=== PATIENT | female | born 1970 | race Caucasian/White ===

== ENCOUNTER 2024-12-31 16:10 | Emergency (ER) | payer OTHER ==
[2024-12-31 17:30] LABS: Absolute Lymphocytes (CBC) 1.5 K/uL (0.7-4.9); Hematocrit 44.1 % (36.0-45.0); Hemoglobin 14.9 g/dL (12.0-15.0); MCH 29.6 pg (27.0-35.0); MCHC 33.9 g/dL (32.0-36.0); MCV 87.5 fL (80-100); MPV 7.3 fL (7.6-11.3); Nucleated RBC Absolute Count 0.0 (0-0); Nucleated Red Blood Cells % 0.2 % (0-0); RBC Red Blood Cell Count 5.04 M/uL (3.86-4.86); White Blood Count 7.00 thou/uL (4.3-10.9)
[2024-12-31] MEDS ORDERED: KETOROLAC 30 MG/ML INJ ONE (17:58)
[2024-12-31] MEDS ORDERED: NA CHLORIDE 0.9% 1,000 ML ONE (17:58)
[2024-12-31] MEDS ORDERED: ONDANSETRON 4 MG/2 ML VIAL ONE (17:58)
[2024-12-31 18:04] LABS: Anion Gap 7.8 mEq/L (5.0-15.0); BUN Blood Urea Nitrogen 8.0 mg/dL (7-18); Glucose Level 96.0 mg/dL (74-106); Troponin High Sensitivity 5.5 pg/mL (<58.9)
[2024-12-31 18:06] LABS: Potassium 3.8 mEq/L (3.5-5.1)
--- NOTE | 2024-12-31 18:06 | RAD REPORT ---
EXAM: Chest Single View HISTORY: 54 years Female CHEST PAIN COMPARISON: No prior exams FINDINGS: LUNGS/PLEURA: The lungs are clear. No pleural effusions or pneumothorax. No pulmonary edema. CARDIAC/MEDIASTINUM: The cardiac silhouette is within normal limits. UPPER ABDOMEN: No significant abnormality. BONES: No acute abnormality. LINES/TUBES/OTHER: N/A IMPRESSION: No evidence of acute cardiopulmonary disease.
--- NOTE | 2024-12-31 18:59 | EDPHYS ---
Physician Documentation [facility] Name: Krissy Singh Age: 54 yrs Sex: Female : 1970 Arrival Date: 12/31/2024 Time: 16:10 Bed 3 Private MD: ED Physician Eleanor Sosa HPI: 12/31 20:02 This 54 yrs old Female presents to ER via Ambulatory with complaints of Chest dr5 Pain, Epigastric Pain, Numbness Of Arm, Headache. 20:02 Onset: The symptoms/episode began/occurred 4 day(s) ago. Patient is a 54-year-old dr5 female with history of arthritis and hypothyroidism coming in with chest pain that lasted 20 minutes while vomiting this afternoon. Patient reports that she has been sick with upper respiratory infection for the past 4 days. Patient reports her also has same symptoms that resolved. Patient denies chest pain, shortness of breath, abdominal pain at my initial visit.. Historical: - Allergies: 16:29 No Known Allergies; dd2 - PMHx: 16:29 Hypothyroidism; Arthritis; dd2 - PSHx: 16:29 CARDIAC STENT; dd2 - Immunization history:: Adult Immunizations up to date. - Infectious Disease History:: Denies. - Social history:: Smoking status: Patient/guardian denies using tobacco, the patient reports quitting approximately 6 years ago. ROS: 20:02 Constitutional: as per hpi dr5 Exam: 20:02 Constitutional: This is a well developed, well nourished patient who is awake, alert, dr5 and in no acute distress. Head/Face: Normocephalic, atraumatic. Eyes: Pupils equal round and reactive to light, extra-ocular motions intact. Lids and lashes normal. Conjunctiva and sclera are non-icteric and not injected. Cornea within normal limits. Periorbital areas with no swelling, redness, or edema. Neck: Trachea midline, no thyromegaly or masses palpated, and no cervical lymphadenopathy. Supple, full range of motion without nuchal rigidity, or vertebral point tenderness. No Meningismus. Chest/axilla: Normal chest wall appearance and motion. Nontender with no deformity. No lesions are appreciated. Cardiovascular: Regular rate and rhythm with a normal S1 and S2. Normal PMI, no JVD. No pulse deficits. Respiratory: Lungs have equal breath sounds bilaterally, clear to auscultation. No rales, rhonchi or wheezes noted. No increased work of breathing, no retractions or nasal flaring. Back: No spinal tenderness. No costovertebral tenderness. Full range of motion. Skin: Warm, dry with normal turgor. Normal color with no rashes, no lesions, and no evidence of cellulitis. MS/ Extremity: Pulses equal, no cyanosis. Neurovascular intact. Full, normal range of motion. Neuro: Awake and alert, GCS 15, oriented to person, place, time, and situation. Cranial nerves II-XII grossly intact. Motor strength 5/5 in all extremities. Sensory grossly intact. Cerebellar exam normal. Normal gait. Vital Signs: 16:24 BP 175 / 105; Pulse 85; Resp 16; Temp 98.2; Pulse Ox 100% ; Weight 90.72 kg; Pain 1/10; dd2 17:28 BP 150 / 80; Pulse 84; Resp 18; Pulse Ox 98% on R/A; af3 18:11 BP 149 / 117; Pulse 77; Resp 18; Pulse Ox 98% on R/A; af3 18:26 BP 149 / 117; Pulse 85; Resp 18; Pulse Ox 100% on R/A; af3 16:24 Pain Scale: Adult dd2 MDM: 16:29 Medical Screening Exam initiated dr5 20:02 Differential diagnosis: viral Infection, bacterial infection, NSTEMI, PNA, GERD, dr5 anemia, STEMI. Data reviewed: vital signs, nurses notes. Consideration of Admission/Observation Escalation of care including admission/observation considered. Escalation considered patient found to have elevated troponin. I considered the following discharge prescriptions or medication management in the emergency department I discussed and recommended Over The Counter medications, Medications were administered in the Emergency Department. See MAR. Independent interpretation of the following test(s) in the Emergency Department X-Ray: My interpretation is Independent termination of x-ray does not reveal fracture or pneumonia.. Historians other than the Patient: Spouse/Significant Other: . Care significantly affected by the following chronic conditions: Hypothyroidism, arthritis. Care significantly affected by the following Social Determinants of Health: Poor access to healthcare and/or lack of insurance, Poor access to transportation, Problems related to employment. Counseling: I had a detailed discussion with the patient and/or guardian regarding the historical points, exam findings, and any diagnostic results supporting the discharge/admit diagnosis, the presence of at least one elevated blood pressure reading (>120/80) during this emergency department visit, lab results, radiology results, the need for outpatient follow up, for definitive care, a family practitioner, to return to the emergency department if symptoms worsen or persist or if there are any questions or concerns that arise at home. Medication response: Response to treatment: the patient's symptoms have resolved after treatment, the patient's condition has returned to base line, the patient is now symptom free. Special discussion: Based on the patient's history, exam, and Dx evaluation, there is no indication for emergent intervention or inpatient Tx. It is understood by the patient/guardian that if the Sx's persist or worsen they need to return immediately for re-evaluation. I discussed with the patient/guardian in detail that at this point there is no indication for admission to the hospital. It is understood, however, that if the symptoms persist or worsen the patient needs to return immediately for re-evaluation. Based on the history and exam findings, there is no indication for further emergent testing or inpatient evaluation. I discussed with the patient/guardian the need to see the orthopedic surgeon for further evaluation of the symptoms. ED course: Patient reports her symptoms are resolved and feeling much better. Will give patient Zofran to help with nausea and vomiting at home. Labs printed and given to patient take with her primary care doctor. All questions answered. Strict ER precautions given.. 12/31 17:14 Order name: Basic Metabolic Panel; Complete Time: 18:07 [facility] 12/31 17:14 Order name: CBC with Diff; Complete Time: 18:05 12/31 17:14 Order name: Troponin HS; Complete Time: 18:07 12/31 17:14 Order name: XRAY Chest (1 view); Complete Time: 18:07 12/31 17:14 Order name: Cardiac monitoring; Complete Time: 17:26 12/31 17:14 Order name: EKG - Nurse/Tech; Complete Time: 17:22 12/31 17:14 Order name: IV Saline Lock; Complete Time: 18:03 [facility] 12/31 17:14 Order name: Labs collected and sent; Complete Time: 17:26 [facility] 12/31 17:14 Order name: O2 Per Protocol; Complete Time: 17:26 ll1 12/31 17:14 Order name: O2 Sat Monitoring; Complete Time: : ll1 EC:51 Rate is 88 beats/min. Rhythm is regular. QRS [place] is Normal. UT interval is normal at dr5 138 msec. QRS interval is normal at 80 msec. QT interval is normal at 348 msec. Clinical impression: Normal ECG and No evidence of ischemia. Administered Medications: 18:10 Drug: NS 0.9% IV 1000 ml IV at 1000 ml once; to be given as a bolus over 60 minutes af3 Route: IV; Rate: 1000 ml; Site: right antecubital; 18:56 Follow up: Response: No adverse reaction; IV Status: Completed infusion; IV Intake: af3 1000ml 18:10 Drug: Ondansetron IVP 4 mg IVP once; over 2 minutes Route: IVP; Site: right antecubital;af3 18:27 Follow up: Response: No adverse reaction af3 18:10 Drug: Ketorolac IVP 15 mg IVP once Route: IVP; Site: right antecubital; af3 18:27 Follow up: Response: No adverse reaction af3 Disposition Summary: 12/31/24 18:59 Discharge Ordered Notes: Location: Home dr5 Condition: Stable dr5 Diagnosis - Nausea with vomiting, unspecified dr5 Followup: dr5 - With: Emergency Department - When: As needed - Reason: Worsening of condition Followup: dr5 - With: Private Physician - When: 1 - 2 days - Reason: Recheck today's complaints, Continuance of care, Re-evaluation by your physician Discharge Instructions: - Discharge Summary Sheet af3 - Nausea and Vomiting, Adult dr5 - Upper Respiratory Infection, Adult dr5 Forms: - Medication Reconciliation Form dr5 - Patient Portal Instructions dr5 - Leadership Thank You Letter dr5 Prescriptions: - Zofran 4 mg Oral Tablet - take 1 tablet ORAL route every 12 hours As needed; 20 tablet; Refills: 0, dr5 Product Selection Permitted Signatures: Dispatcher [employer] EDMS Bridger Matthew RN RN ll1 Michelle Durham RN RN af3 SHAQUILLE PERDOMO RN RN dd2 Phil Dunbar, EMERGENCY DEPARTMENT CLINICIAN-C EMERGENCY DEPARTMENT CLINICIAN-Cdr5 Corrections: (The following items were deleted from the chart) 17:15 17:15 BASIC METABOLIC PANEL+C.LAB.BRZ ordered. EDMS EDMS 17:15 17:15 CBC+H.LAB.BRZ ordered. EDMS EDMS : 17:15 Troponin High Sensitivity+C.LAB.BRZ ordered. EDMS EDMS : 17:15 Chest Single View+RAD.RAD.BRZ ordered. EDMS EDMS
--- NOTE | 2024-12-31 18:59 | ER ---
Nurse's Notes [facility] Name: Krissy Singh Age: 54 yrs Sex: Female : 1970 Arrival Date: 12/31/2024 Time: 16:10 Bed 3 Private MD: Diagnosis: Nausea with vomiting, unspecified Presentation: 12/31 16:24 Chief complaint: Patient states: SHE HAS BEEN HAVING COLD SYMPTOMS, SINUS PRESSURE AND dd2 HEADACHE FOR 4 DAYS, TODAY BEGAN HAVING NAUSEA AND VOMITED X 1, IMMEDIATELY AFTERWARDS BEGAN HAVING UPPER EPIGASTRIC PAIN, CHEST PAIN, LT ARM HEAVINESS, PAIN AND TINGLING. PT REPORTS IT LASTED 20 MINS AND WENT AWAY. Coronavirus screen: congestion, cough unrelated to allergies, fatigue, fever, headache, nausea, vomiting. Ebola Screen: No symptoms or risks identified at this time. Initial Sepsis Screen: Does the patient meet any 2 criteria? No. Patient's initial sepsis screen is negative. Does the patient have a suspected source of infection? No. Patient's initial sepsis screen is negative. Risk Assessment: Do you want to hurt yourself or someone else? Patient reports no desire to harm self or others. Onset of symptoms was December 27, 2024. 16:24 Method Of Arrival: Ambulatory dd2 16:24 Acuity: CAROLYN 3 dd2 Triage Assessment: 16:29 General: Appears in no apparent distress. Behavior is calm, cooperative, appropriate dd2 for age. Pain: Complains of pain in HEAD Pain currently is 1 out of 10 on a pain scale. EENT: Reports nasal congestion nasal discharge. Cardiovascular: Reports chest pain, CP FOR 20 MINS Patient's skin is warm and dry. Historical: - Allergies: 16:29 No Known Allergies; dd2 - PMHx: 16:29 Hypothyroidism; Arthritis; dd2 - PSHx: 16:29 CARDIAC STENT; dd2 - Immunization history:: Adult Immunizations up to date. - Infectious Disease History:: Denies. - Social history:: Smoking status: Patient/guardian denies using tobacco, the patient reports quitting approximately 6 years ago. Screenin:44 [facility] ED Fall Risk Assessment (Adult) History of falling in the last 3 months, af3 including since admission No falls in past 3 months (0 pts) Confusion or Disorientation No (0 pts) Intoxicated or Sedated No (0 pts) Impaired Gait No (0 pts) Mobility Assist Device Used No (0 pt) Altered Elimination No (0 pt) Score/Fall Risk Level 0 - 2 = Low Risk Oriented to surroundings, Maintained a safe environment, Educated pt \T\ family on fall prevention, incl call for assistance when getting out of bed. Abuse screen: Denies threats or abuse. Denies injuries from another. Nutritional screening: No deficits noted. Tuberculosis screening: No symptoms or risk factors identified. Assessment: 17:26 General: Appears in no apparent distress. comfortable, well groomed, well developed, af3 Behavior is calm, cooperative, appropriate for age. Pain: Complains of pain in diaphragm. Neuro: Level of Consciousness is awake, alert, obeys commands, Oriented to person, place, time, situation, Appropriate for age. Cardiovascular: Patient's skin is warm and dry. Rhythm is sinus rhythm. Respiratory: Airway is patent Respiratory effort is even, unlabored, Respiratory pattern is regular, symmetrical. GI: n/v around 2pm, chest pain occurred while vomiting. 18:04 Reassessment: Patient and/or family updated on plan of care and expected duration. Pain ll1 level reassessed. 18:26 Reassessment: Patient appears in no apparent distress at this time. Patient and/or af3 family updated on plan of care and expected duration. Pain level reassessed. Patient is alert, oriented x 3, equal unlabored respirations, skin warm/dry/pink. Patient states symptoms have improved. Vital Signs: 16:24 BP 175 / 105; Pulse 85; Resp 16; Temp 98.2; Pulse Ox 100% ; Weight 90.72 kg; Pain 1/10; dd2 17:28 BP 150 / 80; Pulse 84; Resp 18; Pulse Ox 98% on R/A; af3 18:11 BP 149 / 117; Pulse 77; Resp 18; Pulse Ox 98% on R/A; af3 18:26 BP 149 / 117; Pulse 85; Resp 18; Pulse Ox 100% on R/A; af3 16:24 Pain Scale: Adult dd2 ED Course: 16:15 Patient arrived in ED. im 16:29 Triage completed. dd2 16:29 Phil Dunbar FNP-C [facility]. dr5 16:29 Eleanor Sosa MD is Attending Physician. dr5 16:29 Arm band placed on right wrist. dd2 16:53 EKG done, by mechanic sound technician. reviewed by Phil SPANN. ts3 17:10 Zahida Pena, RN is Primary Nurse. mahendra 17:14 Michelle Durham RN is Primary Nurse. ll1 17:44 Patient has correct armband on for positive identification. Bed in low position. Call af3 light in reach. Provided Education on: call light use . 17:44 No provider procedures requiring assistance completed. Missed attempt(s): 20 gauge in af3 left antecubital area. 18:03 Inserted saline lock: 22 gauge in right antecubital area, using aseptic technique. ll1 Flushed with 10 mL NS. 18:04 XRAY Chest (1 view) In Process Unspecified. EDMS 19:07 IV discontinued, intact, bleeding controlled, No redness/swelling at site. Pressure af3 dressing applied. Administered Medications: 18:10 Drug: NS 0.9% IV 1000 ml IV at 1000 ml once; to be given as a bolus over 60 minutes af3 Route: IV; Rate: 1000 ml; Site: right antecubital; 18:56 Follow up: Response: No adverse reaction; IV Status: Completed infusion; IV Intake: af3 1000ml 18:10 Drug: Ondansetron IVP 4 mg IVP once; over 2 minutes Route: IVP; Site: right antecubital;af3 18:27 Follow up: Response: No adverse reaction af3 18:10 Drug: Ketorolac IVP 15 mg IVP once Route: IVP; Site: right antecubital; af3 18:27 Follow up: Response: No adverse reaction af3 Medication: 17:45 VIS not applicable for this client. af3 Intake: 18:56 IV: 1000ml; Total: 1000ml. af3 Outcome: 18:59 Discharge ordered by MD. dr5 19:07 Discharged to home ambulatory, with family, af3 19:07 Condition: stable 19:07 Discharge instructions given to patient, Instructed on discharge instructions, follow up and referral plans. medication usage, Demonstrated understanding of instructions, follow-up care, medications, Prescriptions given X 1, 19:07 Patient left the ED. af3 Signatures: Dispatcher [employer] EDMS Bridger Matthew RN RN ll1 Zahida Pena, YUMI RN mb9 Mamie Monge Ashley, RN RN af3 SHAQUILLE PERDOMO RN RN dd2 Phil Dunbar, MANAGING DIRECTOR ATLAS-C MANAGING DIRECTOR ATLAS-Cdr5 Mary Lawton 3
[2024-12-31 19:11] VITALS: TEMP 98.2
[2024-12-31 19:14] VITALS: BP 149/117
[2024-12-31 19:16] VITALS: O2SAT 100
== END 2024-12-31 19:07 | disposition home or self-care (01) ==
LOC: ER 16:10
DX: R11.2 Nausea with vomiting, unspecified (principal); R07.9 Chest pain, unspecified; Z95.818 Presence of other cardiac implants and grafts
CPT/HCPCS: 96361; 93005; 85025; 80048; 36415; 84484; 71045; 96375; 96374; 99284; J2405; J7030